=== PATIENT | male | born 1955 | race American Indian/Alaskan Native ===

== ENCOUNTER 2017-04-20 11:28 | Observation (INO) | payer BC ==
--- NOTE | 2017-04-20 12:27 | ED PDOC ---
Arrival/HPI - General Chief Complaint: Chest Pain Time Seen by Provider: 04/20/17 11:32 Historian: Patient - History of Present Illness Narrative History of Present Illness (Text): 04/20/17 12:39 61 year old male, whose past medical history includes cardiac stent ( noncompliant with medication for 6 months), [facility] for on and off chest pain for the past few days. Patient describes the chest pain as pressure sensation. He reports last episode early this morning. Patient positive for nonproductive cough, but denies any fever, chills, shortness of breath, nausea, vomiting, diarrhea, urinary symptoms, back pain, neck pain, headache, dizziness, or any other complaints. PMD: Dr. Rapp Time/Duration: Other (3-4 days) Symptom Onset: Gradual Symptom Course: Intermittent Quality: Pressure Activities at Onset: Light Context: Home Past Medical History - Provider Review Nursing Documentation Reviewed: Yes - Infectious Disease Hx of Infectious Diseases: None - Cardiac Hx Cardiac Disorders: No Other/Comment: cardiac stent - Pulmonary Hx Respiratory Disorders: No - Neurological Hx Neurological Disorder: No - HEENT Hx HEENT Disorder: No - Renal Hx Renal Disorder: No - Endocrine/Metabolic Hx Endocrine Disorders: No - Hematological/Oncological Hx Blood Transfusions: No Hx Blood Transfusion Reaction: No - Integumentary Hx Dermatological Disorder: No - Musculoskeletal/Rheumatological Hx Falls: No - Gastrointestinal Other/Comment: heart burn... takes prevacid prn - Genitourinary/Gynecological Hx Genitourinary Disorders: No - Psychiatric Hx Psychophysiologic Disorder: No Hx Substance Use: No - Past Surgical History Past Surgical History: No Previous - Anesthesia Hx Anesthesia Reactions: No Hx Malignant Hyperthermia: No - Suicidal Assessment Feels Threatened In Home Enviroment: No Family/Social History - Physician Review Nursing Documentation Reviewed: Yes Family/Social History: No Known Family HX Smoking Status: Former Smoker Hx Alcohol Use: No Hx Substance Use: No Allergies/Home Meds Allergies/Adverse Reactions: Allergies No Known Allergies Allergy (Verified 04/27/13 21:36) Home Medications: Home Meds Medication Instructions Recorded Confirmed No Known Home Med 04/20/17 04/20/17 Review of Systems - Physician Review All systems were reviewed & negative as marked: Yes - Review of Systems Constitutional: absent: Fevers, Other (Chills) Respiratory: Cough. absent: SOB Cardiovascular: Chest Pain Gastrointestinal: absent: Diarrhea, Nausea, Vomiting Genitourinary Male: absent: Dysuria, Frequency, Hematuria Musculoskeletal: absent: Back Pain, Neck Pain Neurological: absent: Headache, Dizziness Physical Exam Vital Signs Reviewed: Yes Vital Signs Temp Pulse Resp BP Pulse Ox 04/20/17 14:15 66 18 160/100 H 99 04/20/17 12:02 69 16 130/85 97 04/20/17 11:32 98.3 F 68 18 130/85 98 Temperature: Afebrile Blood Pressure: Normal Pulse: Regular Respiratory Rate: Normal Appearance: Positive for: Well-Appearing, Non-Toxic, Comfortable Pain Distress: None Mental Status: Positive for: Alert and Oriented X 3 - Systems Exam Head: Present: Atraumatic, Normocephalic Pupils: Present: PERRL Extroacular Muscles: Present: EOMI Conjunctiva: Present: Normal Mouth: Present: Moist Mucous Membranes Neck: Present: Normal Range of Motion Respiratory/Chest: Present: Clear to Auscultation, Good Air Exchange. No: Respiratory Distress, Accessory Muscle Use Cardiovascular: Present: Regular Rate and Rhythm, Normal S1, S2. No: Murmurs Abdomen: Present: Normal Bowel Sounds. No: Tenderness, Distention, Peritoneal Signs Back: Present: Normal Inspection Upper Extremity: Present: Normal Inspection. No: Cyanosis, Edema Lower Extremity: Present: Normal Inspection. No: Edema Neurological: Present: GCS=15, CN II-XII Intact, Speech Normal Skin: Present: Warm, Dry, Normal Color. No: Rashes Psychiatric: Present: Alert, Oriented x 3, Normal Insight, Normal Concentration Medical Decision Making ED Course and Treatment: 04/20/17 12:39 Impression: 61 year old male presents complaining of on and off chest pain for the past few days associated with a nonproductive cough. Plan: -- Labs -- EKG -- Reassess and disposition Prior Visits: Notes and results from previous visits were reviewed. Patient was last seen in the emergency department on 04/28/13 presents complaining of on and off worsening chest pain for the past 5 days. Progress Notes: 04/20/17 12:53 EKG shows NSR at 71 BPM with first degree AV Block. Left axis deviation. Interpreted by me. - Lab Interpretations Lab Results: Lab Results 01/04/18 13:30: Triglycerides 112, Cholesterol 176, LDL Cholesterol Direct 122, HDL Cholesterol 30 04/20/17 13:30: Lactate Dehydrogenase 469, Total Creatine Kinase 92, Troponin I < 0.01 D 04/20/17 12:20: ESR 15 04/20/17 12:16: D-Dimer, Quantitative < 200 I have reviewed the lab results: Yes - EKG Interpretation Interpreted by ED Physician: Yes Type: 12 lead EKG - Medication Orders Current Medication Orders: Albuterol/Ipratropium (Duoneb 3 Mg/0.5 Mg (3 Ml) Ud) 3 ml IH [id number] [facility] Stop: 05/20/17 08:01 Last Admin: 04/20/17 14:43 Dose: 3 ml Aspirin (Ecotrin) 81 mg PO DAILY [facility] Last Admin: 04/20/17 14:39 Dose: Atorvastatin Calcium (Lipitor) 40 mg PO DAILY [facility] Last Admin: 04/20/17 14:43 Dose: 40 mg Benzonatate (Tessalon Perles) 200 mg PO TID [facility] Last Admin: 04/20/17 14:43 Dose: 200 mg Clopidogrel Bisulfate (Plavix) 75 mg PO DAILY [facility] Last Admin: 04/20/17 14:43 Dose: 75 mg Enoxaparin Sodium (Lovenox) 50 mg SC Q12H [facility] PRN Reason: Protocol Last Admin: 04/20/17 14:43 Dose: 50 mg Subcutaneous Administrations Document 04/20/17 14:43 [facility] [place]Rec: 04/20/17 14:43 [facility] [id number][place] Injection Site MAR Injection Site Left Abdomen Charges for Administration # of Subcutaneous Administrations 1 Sodium Chloride (Sodium Chloride 0.9%) 1,000 mls @ 100 mls/hr IV .Q10H [facility] Last Admin: 04/20/17 14:43 Dose: 100 mls/hr eMAR Start Stop Document 04/20/17 14:43 [facility] [place]Rec: 04/20/17 14:44 [facility] [id number]) Intravenous Solution Start Date 04/20/17 Start Time 14:44 Metoprolol Tartrate (Lopressor) 25 mg PO BID [facility] Pantoprazole Sodium (Protonix Ec Tab) 40 mg PO 0600,1600 [facility] Last Admin: 04/20/17 16:16 Dose: 40 mg - Scribe Statement The provider has reviewed the documentation as recorded by the Scribe Alaa Amberly Provider Verna Attestation: All medical record entries made by the Verna were at my direction and personally dictated by me. I have reviewed the chart and agree that the record accurately reflects my personal performance of the history, physical exam, medical decision making, and the department course for this patient. I have also personally directed, reviewed, and agree with the discharge instructions and disposition. Disposition/Present on Arrival - Present on Arrival Any Indicators Present on Arrival: No History of DVT/PE: No History of Uncontrolled Diabetes: No Urinary Catheter: No History of Decub. Ulcer: No History Surgical Site Infection Following: None - Disposition Have Diagnosis and Disposition been Completed?: Yes Diagnosis: Chest pain Disposition: HOSPITALIZED Disposition Time: 13:40 Condition: STABLE
[2017-04-20 13:54] LABS: TROPONIN I < 0.01 ng/mL
[2017-04-20] MEDS ORDERED: Iohexol 240 (50 ml) ONE (14:21)
--- NOTE | 2017-04-20 14:35 | CARD ---
APPROVED REPORT EKG Measurement Heart [id number] <Conclusion> Sinus rhythm with 1st degree AV block Poor R Progression V1-V3.
[2017-04-20 14:40] LABS: HDL CHOLESTEROL 30 mg/dL (29-60)
[2017-04-20] MEDS: Sodium Chloride 0.9% 1,000 ML IV SCH (14:43)
[2017-04-20] MEDS: Albuterol-Ipratrop 3 mg / 0.5 (3 ml) UD IH SCH (14:43)
[2017-04-20] MEDS: Enoxaparin 60 mg Syringe SC SCH (14:43)
[2017-04-20 14:51] LABS: LDL CHOLESTEROL 122 mg/dL (0-129)
--- NOTE | 2017-04-20 15:46 | CP.PCM.HP ---
History of Present Illness - History of Present Illness History of Present Illness: Sofiya Vincent, PGY1, H&P for Dr Rapp: CC: chest pain 61 year old male, with PMH cardiac stent 2012, presents to the emergency department for intermittent left chest pain x past 3 days. Patient states that he has been having cold symptoms (nasal congestion and nonproductive cough) for past 3 days, along with this left sided pressure like cp, rates it 6/10, intermittent in nature, worsened last night, which prompted him to come to ED. Denies associated sob, diaphoresis, palpitations, n/v/abd pain. Furthermore, denies headache, diarrhea, urinary symptoms, back pain, neck pain, headache, dizziness, loss of appetite, constipation. In ED, pt hemodynamically stable, EKG showed NSR at 71. 1st degree AV block, d dimer neg, initial trop neg. 12 point ROS negative, except as noted per HPI. PMD: Dr. 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 Present on Admission - Present on Admission Any Indicators Present on Admission: No History of DVT/PE: No History of Uncontrolled Diabetes: No Urinary Catheter: No Decubitus Ulcer Present: No Review of Systems - Review of Systems All systems: reviewed and no additional remarkable complaints except Review of Systems: as per HPI Past Patient History - Infectious Disease Hx of Infectious Diseases: None - Past Social History Smoking Status: Former Smoker - CARDIAC Hx Cardiac Disorders: No Other/Comment: cardiac stent - PULMONARY Hx Respiratory Disorders: No - NEUROLOGICAL Hx Neurological Disorder: No - HEENT Hx HEENT Problems: No - RENAL Hx Chronic Kidney Disease: No - ENDOCRINE/METABOLIC Hx Endocrine Disorders: No - HEMATOLOGICAL/ONCOLOGICAL Hx Blood Transfusions: No Hx Blood Transfusion Reaction: No - INTEGUMENTARY Hx Dermatological Problems: No - MUSCULOSKELETAL/RHEUMATOLOGICAL Hx Falls: No - GASTROINTESTINAL Other/Comment: heart burn... takes prevacid prn - GENITOURINARY/GYNECOLOGICAL Hx Genitourinary Disorders: No - PSYCHIATRIC Hx Psychophysiologic Disorder: No Hx Substance Use: No - SURGICAL HISTORY Hx Surgeries: Yes - ANESTHESIA Hx Anesthesia Reactions: No Hx Malignant Hyperthermia: No Meds Allergies/Adverse Reactions: Allergies Allergy/AdvReac Type Severity Reaction Status Date / Time No Known Allergies Allergy Verified 04/27/13 21:36 Physical Exam - Constitutional Appears: Non-toxic, No Acute Distress - Head Exam Head Exam: ATRAUMATIC, NORMOCEPHALIC - Eye Exam Eye Exam: EOMI, PERRL. absent: Scleral icterus Pupil Exam: PERRL - ENT Exam ENT Exam: Mucous Membranes Moist Additional comments: mild erythematous pharynx - Neck Exam Neck exam: Positive for: Normal Inspection. Negative for: Lymphadenopathy - Respiratory Exam Respiratory Exam: Clear to Auscultation Bilateral. absent: Accessory Muscle Use , Respiratory Distress - Cardiovascular Exam Cardiovascular Exam: +S1, +S2. absent: Systolic Murmur - GI/Abdominal Exam GI & Abdominal Exam: Normal Bowel Sounds, Soft. absent: Diminished Bowel Sounds , Tenderness - Rectal Exam Rectal Exam: Deferred - Extremities Exam Extremities exam: Positive for: calf tenderness, normal inspection. Negative for: pedal edema - Back Exam Back exam: NORMAL INSPECTION - Neurological Exam Neurological exam: Alert, Oriented x3 - Psychiatric Exam Psychiatric exam: Normal Affect, Normal Mood - Skin Skin Exam: Dry, Normal Color, Warm Results - Vital Signs Recent Vital Signs: Last Vital Signs Temp 98.3 F 04/20/17 11:32 Pulse 66 04/20/17 14:15 Resp 18 04/20/17 14:15 BP 160/100 H 04/20/17 14:15 Pulse Ox 99 04/20/17 14:15 Assessment & Plan - Assessment and Plan (Free Text) Assessment: 61 years old male with hx of cardiac stent, presents for chest pain and cold like symptoms: Chest pain, r/o ACS: - EKG showed HR 71 SR with 1st degree AV block. left axis deviation. - Initial trop neg. f/u serial trops with EKG. - D dimer neg. - ASA 81, lipitor, BB - Cardio consulted. f/u recs - f/u ct chest/abd/pelvis and echocardiogram - Echo 2014 showed normal ef 54% and no valvular abnormalities. - Tele monitor Cold like symptoms: - f/u influenza and throat culture - f/u cbc, cmp - tessalon perles and duonebs PPX: Protonix, Lovenox Will discuss with Dr Rapp. Sofyia Vincent, PGY1 - Date & Time Date: 04/20/17 Time: 15:53
[2017-04-20] MEDS: Pantoprazole 40 mg EC Tab PO SCH (16:16)
[2017-04-20 16:29] LABS: BASO # 0.02 K/mm3 (0.0-2.0); BASO % 0.3 % (0.0-3.0); EOS # 0.1 (0.0-0.7); EOS % 1.5 % (1.5-5.0); GRAN # 3.6 (1.4-6.5); GRAN % 50.7 % (50.0-68.0); HEMOGLOBIN 14.6 g/dL (14.0-18.0); LYMPH # 2.9 (1.2-3.4); LYMPH % 40.6 % (22.0-35.0); MEAN CELL VOLUME 89.7 fl (80.0-105.0); MEAN CORPUSCULAR HEMOGLOBIN 30.6 pg (25.0-35.0); MEAN CORPUSCULAR HGB CONC 34.1 g/dl (31.0-37.0); MEAN PLATELET VOLUME 10.4 fl (7.0-11.0); MONO # 0.5 (0.1-0.6); MONO % 6.9 % (1.0-6.0); RBC 4.77 10^6/uL (3.5-6.1); RED CELL DISTRIBUTION WIDTH 13.2 % (11.5-14.5); WHITE BLOOD COUNT 7.1 10^3/ul (4.5-11.0)
--- NOTE | 2017-04-20 16:35 | RAD ---
HISTORY: cough COMPARISON: 02/2014 FINDINGS: LUNGS: No consolidation PLEURA: No significant pleural effusion identified, no pneumothorax apparent. CARDIOVASCULAR: Mild cardiomegaly. Tortuous unfolded thoracic aorta accentuate on this projection -slightly increased in conspicuity as well. Central pulmonary venous mild congestion ; minimal left perihilar bronchial cuffing OSSEOUS STRUCTURES: Thoracic spondylosis VISUALIZED UPPER ABDOMEN: Normal. OTHER FINDINGS: None. IMPRESSION: Cardiomegaly probable mild central pulmonary venous congestion increased since prior exam. No pleural effusions or pneumothorax. No consolidative infiltrate
[2017-04-20 16:42] LABS: ALB/GLOB RATIO 1.1 (1.1-1.8); ALBUMIN 3.8 g/dL (3.0-4.8); ALT/SGPT 30 U/L (7-56); AST/SGOT 26 U/L (17-59); BLOOD UREA NITROGEN 12 mg/dL (7-21); CALCIUM 8.7 mg/dL (8.4-10.5); GFR AFRICAN-AMERICAN > 60; GFR NON-AFRICAN AMERICAN > 60
[2017-04-20] MEDS ORDERED: Iohexol 350 MG/100 ML VIAL ONE (16:48)
--- NOTE | 2017-04-20 17:39 | CT ---
CT chest, abdomen, and pelvis with IV contrast Indication: Left chest pain/left upper quadrant pain Technique: Contiguous axial images of the chest, abdomen, and pelvis. Coronal and Sagittal reformats generated and reviewed. This CT exam was performed using 1 or more of the following dose reduction techniques: Automated exposure control, adjustment of the MAA and/or kV according to patient size, and/or use of iterative reconstruction technique. Oral contrast was administered. 100 mL Omnipaque 350 Radiation dose: Total exam DLP = 1025.33 MGy-cm. Comparison: Chest x-ray performed 04/20/17 Findings: Visualized portions of the inferior thyroid gland appear unremarkable. The mediastinal and hilar vascular structures appear within normal limits. The heart appears within normal limits of size. 13 mm upper mediastinal lymph node. Additional sub cm mediastinal lymph nodes. No focal consolidation. No pleural effusion. No pneumothorax. No suspicious pulmonary nodules measuring greater than 5 mm. The liver, spleen, kidneys, pancreas, adrenal glands, and gallbladder appear unremarkable. The stomach is nondistended. Scattered diverticulosis without CT evidence of acute diverticulitis. The bowel loops appear within normal limits of caliber without evidence of intestinal obstruction. There is no definite free air. The appendix appears within normal limits of caliber. No secondary signs of acute appendicitis. The prostate gland measures approximately 3.8 x 4.8 cm. The urinary bladder appears unremarkable. Bilateral gynecomastia. Bilateral fat containing inguinal hernias. Degenerative changes of the spine. Impression: Scattered diverticulosis without CT evidence of acute diverticulitis. Enlarged prostate gland. Recommend correlation with PSA. 13 mm upper mediastinal lymph node and additional sub cm mediastinal lymph nodes ; nonspecific. Additional incidental findings as above.
[2017-04-20 18:23] LABS: TROPONIN I < 0.01 ng/mL
[2017-04-20 19:53] VITALS: BMI 29.1
[2017-04-20] MEDS ORDERED: Pneumococcal 23-Valent Vaccine IM ONE (19:53)
[2017-04-20] MEDS ORDERED: Influenza Vaccine 60 mcg/0.5 mL SYR (4YR UP) IM ONE (19:53)
[2017-04-20 22:15] LABS: TROPONIN I < 0.01 ng/mL
--- NOTE | 2017-04-20 22:57 | HP ---
HISTORY OF PRESENT ILLNESS: The patient is a 61-year-old male, who has been lost to follow up since last 3 years. The patient was seen in the [facility] satellite ER on [address] in [place], presented with left-sided chest pain around the left rib cage, radiating to the left lower rib cage and anteriorly. The patient presented to the [facility] satellite ER for the above complaint of chest pain. The patient was given Tylenol, aspirin. The patient described the pain as a pressure-type, lasted since started since yesterday. Also complains of body aches and pain. Pain scale was described as 7-8/10. The patient was transferred. The patient was evaluated in the [facility] satellite ER. The patient had chest x-ray, EKG, lab work done at the [facility] ER. REVIEW OF SYSTEMS: Thirteen systems review was done, pertinent positive and negative dictated above. The patient does complain of some cough and upper respiratory symptoms. CODE STATUS: The patient's code status full code. LIVING WILL ADVANCE DIRECTIVE: None. HEIGHT: 5 feet 10. WEIGHT: 208 pounds. BODY MASS INDEX: 29. ALLERGIES: NONE. HOME MEDICATIONS: None. The patient states that he has stopped taking all the medications. SOCIAL HISTORY: Positive for former smoking. Denies alcohol. Denies drug use. FAMILY HISTORY: Positive for hypertension. 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 PAST MEDICAL HISTORY: The patient's past medical history is significant for hypertension, history of caz-TH-[id number] myocardial function, history of acute coronary syndrome, history of angina, history of coronary artery disease with 90% mid segment right coronary stenosis, history of 30% ostial stenosis of the left circumflex, history of PCI of the mid RCA stenosis with drug-eluting stent, history of hypertension, history of left ventricular hypertrophy, history of lymphocytosis resolved, history of dyslipidemia, history of hypokalemia, history of dyslipidemia, history of noncompliance, history of coronary artery disease, history of angioplasty and stent placement, history of poor compliance, history of lost to follow up. As mentioned, the patient was seen in the [facility] satellite ER. The patient was evaluated and then the patient requested to be transferred to [place] emergency room for further treatment and admission and the patient requested to be transferred here to Dr. Marlon Rapp's service. PHYSICAL EXAMINATION: GENERAL: The patient was seen in bed #2 in the emergency room. VITAL SIGNS: T-max 98.3, heart rate 68-69, blood pressure 130/85, respirations 18, O2 sat 97-98%. HEENT: The patient's head examination normocephalic, atraumatic. HEENT examination shows pink conjunctivae. Anicteric sclerae. No oropharyngeal lesion. No neck rigidity. No jugular venous distention. No carotid bruit. CHEST: Kyphosis. LUNGS: Shows no rales, crackles or wheezing. Occasional rhonchi noted, left more than the right. CARDIOVASCULAR: S1, S2, regular rhythm. No audible murmur, gallop or rub. ABDOMEN: Soft. Positive bowel sounds. Questionable left rib cage palpable tenderness. Positive questionable left upper quadrant deep tenderness. No rebound tenderness. No appreciable hepatosplenomegaly. GENITALIA: Male. RECTAL: Deferred. EXTREMITY: Shows no pitting edema, no calf tenderness, no Maria Isabel's signs. VASCULAR: Palpable pulses. No clubbing, no cyanosis. No pitting edema, no calf tenderness, no Maria Isabel's signs. NEUROLOGIC: The patient is alert, awake, oriented x3. Cranial nerves II through XII intact. Gait examination is not tested. LABORATORY DATA: The patient's diagnostics including the lab data, chest x-ray and EKG were reviewed from the [facility] satellite ER. All were within normal limit. The patient had a second set of cardiac enzymes done in the emergency room, which was CPK and troponin, which was negative. D-dimer was negative. The patient was seen and evaluated in the emergency room. The patient had an EKG done in the emergency room also, repeated. The patient was seen and evaluated in the emergency room by Dr. Sin. The agreed to stay in the hospital for observation. The patient's EKG was reviewed, which shows sinus rhythm with left axis deviation and left ventricular hypertrophy changes. The patient was seen and evaluated. The patient was advised to be admitted to telemetry observation. IMPRESSION AND PLAN: 1. Chest pain. 2. Questionable and possible acute coronary syndrome. 3. Unstable angina. 4. Hypertension. 5. History of poor compliance. 6. Questionable bronchitis. 7. History of coronary artery disease, history of gic-FG-acvlbywbi myocardial infarction, history of angioplasty and stent placement of the right coronary artery, history of dyslipidemia. Plan at this time, the patient is to be placed on telemetry observation. The patient has been ordered serial EKGs, serial troponins, serial CPK. Lipid panel ordered. ESR ordered. Cardiology consultation ordered. The patient is also ordered DuoNeb nebulizer every 6 hours. The patient is on aspirin 81 daily, Lipitor 40 mg daily, Lopressor 25 mg twice a day, Lovenox 50 mg subcu q. 12, Plavix 75 mg daily, Protonix 40 mg daily. The patient is also started on intravenous fluid hydration at 0.9 normal saline at 100 mL an hour, Tessalon Perles 200 three times a day. The patient is also ordered a CT of the chest, abdomen and pelvis for evaluation of the left-sided chest pain and left upper quadrant pain. Repeat EKG ordered. Echo with Doppler ordered. Heart healthy diet ordered. Lovenox out of bed ordered. The patient is ordered deep venous thrombosis, gastrointestinal prophylaxis. The patient was explained about the details of his medical condition. The patient is agreeable to be hospitalized for further cardiac testing and further diagnostic therapeutic intervention. The patient was explained all the details of his medical condition, need for hospitalization, need for further treatment management was discussed and explained to the patient at length and all questions concerned answered. Dictated and electronically signed, not read. Signing off, Marlon Rapp MD
[2017-04-21] MEDS: Enoxaparin 60 mg Syringe SC SCH (03:17)
[2017-04-21] MEDS: Sodium Chloride 0.9% 1,000 ML IV SCH ×3 (03:20→10:38)
[2017-04-21 03:40] VITALS: RESP 18
[2017-04-21] MEDS: Pantoprazole 40 mg EC Tab PO SCH (06:13)
[2017-04-21 07:02] VITALS: TEMP 98.7; O2SAT 100
[2017-04-21 07:03] LABS: BASO # 0.02 K/mm3 (0.0-2.0); BASO % 0.3 % (0.0-3.0); EOS # 0.1 (0.0-0.7); EOS % 2.4 % (1.5-5.0); GRAN # 2.81 (1.4-6.5); GRAN % 47.2 % (50.0-68.0); HEMOGLOBIN 14.2 g/dL (14.0-18.0); LYMPH # 2.6 (1.2-3.4); LYMPH % 43.7 % (22.0-35.0); MEAN CORPUSCULAR HGB CONC 33.6 g/dl (31.0-37.0); MONO # 0.4 (0.1-0.6); MONO % 6.4 % (1.0-6.0); RBC 4.74 10^6/uL (3.5-6.1); RED CELL DISTRIBUTION WIDTH 12.9 % (11.5-14.5)
[2017-04-21 07:43] LABS: ALB/GLOB RATIO 1.1 (1.1-1.8); ALBUMIN 3.6 g/dL (3.0-4.8); ALT/SGPT 27 U/L (7-56); AST/SGOT 25 U/L (17-59); BLOOD UREA NITROGEN 10 mg/dL (7-21); CALCIUM 8.5 mg/dL (8.4-10.5); GFR AFRICAN-AMERICAN > 60; GFR NON-AFRICAN AMERICAN > 60
--- NOTE | 2017-04-21 08:05 | CP.PCM.PN ---
Subjective - Date & Time of Evaluation Date of Evaluation: 04/21/17 Time of Evaluation: 08:04 - Subjective Subjective: Sofiya Vincent, PGY1, Medicine Progress Note for Dr Rapp: Patient seen and examined at bedside. No acute events overnight. Patient denies Objective - Vital Signs/Intake and Output Vital Signs (last 24 hours): Temp Pulse Resp BP Pulse Ox 98.7 F 63 18 136/87 100 04/21/17 06:00 04/21/17 06:00 04/21/17 06:00 04/21/17 06:00 04/21/17 06:00 Intake and Output: 04/21/17 04/21/17 06:59 18:59 Intake Total 240 1000 Output Total 300 Balance -60 1000 - Medications Medications: Current Medications Acetaminophen (Tylenol 325mg Tab) 650 mg PO Q6H PRN PRN Reason: headache Last Admin: 04/20/17 22:48 Dose: 650 mg Albuterol/Ipratropium (Duoneb 3 Mg/0.5 Mg (3 Ml) Ud) 3 ml IH [id number] [facility] Stop: 05/20/17 08:01 Last Admin: 04/20/17 14:43 Dose: 3 ml Aspirin (Ecotrin) 81 mg PO DAILY [facility] Last Admin: 04/20/17 14:39 Dose: Not Given Atorvastatin Calcium (Lipitor) 40 mg PO DAILY [facility] Last Admin: 04/20/17 14:43 Dose: 40 mg Benzonatate (Tessalon Perles) 200 mg PO TID [facility] Last Admin: 04/20/17 14:43 Dose: 200 mg Clopidogrel Bisulfate (Plavix) 75 mg PO DAILY [facility] Last Admin: 04/20/17 14:43 Dose: 75 mg Enoxaparin Sodium (Lovenox) 50 mg SC Q12H [facility] PRN Reason: Protocol Last Admin: 04/21/17 03:17 Dose: 50 mg Sodium Chloride (Sodium Chloride 0.9%) 1,000 mls @ 100 mls/hr IV .Q10H [facility] Last Admin: 04/21/17 06:13 Dose: 100 mls/hr Metoprolol Tartrate (Lopressor) 25 mg PO BID [facility] Last Admin: 04/20/17 17:43 Dose: 25 mg Pantoprazole Sodium (Protonix Ec Tab) 40 mg PO 0600,1600 [facility] Last Admin: 04/21/17 06:13 Dose: 40 mg - Labs Labs: 04/21/17 06:00 04/21/17 06:00
[2017-04-21] MEDS: Albuterol-Ipratrop 3 mg / 0.5 (3 ml) UD IH SCH (08:24)
--- NOTE | 2017-04-21 09:58 | CARD ---
APPROVED REPORT EKG Measurement Heart [id number] <Conclusion> Sinus rhythm with premature supraventricular complexes Otherwise normal ECG
--- NOTE | 2017-04-21 10:37 | CP.PCM.DIS ---
Provider - Provider Date of Admission: 04/20/17 14:10 Attending physician: Marlon Rapp MD Primary care physician: Marlon Rapp MD Consults: Card[place] Time Spent in preparation of Discharge (in minutes): 35 Diagnosis - Discharge Diagnosis (1) Chest pain Status: Acute (2) Reflux Status: Acute Hospital Course - Lab Results Lab Results: Most Recent Lab Values WBC 6.0 10^3/ul (4.5-11.0) 04/21/17 06:00 RBC 4.74 10^6/uL (3.5-6.1) 04/21/17 06:00 Hgb 14.2 g/dL (14.0-18.0) 04/21/17 06:00 Hct 42.2 % (42.0-52.0) 04/21/17 06:00 MCV 89.0 fl (80.0-105.0) 04/21/17 06:00 MCH 30.0 pg (25.0-35.0) 04/21/17 06:00 MCHC 33.6 g/dl (31.0-37.0) 04/21/17 06:00 RDW 12.9 % (11.5-14.5) 04/21/17 06:00 Plt Count 208 10^3/uL (120.0-450.0) 04/21/17 06:00 MPV 10.0 fl (7.0-11.0) 04/21/17 06:00 Gran % 47.2 % (50.0-68.0) L 04/21/17 06:00 Lymph % (Auto) 43.7 % (22.0-35.0) H 04/21/17 06:00 [place] % (Auto) 6.4 % (1.0-6.0) H 04/21/17 06:00 Eos % (Auto) 2.4 % (1.5-5.0) 04/21/17 06:00 Baso % (Auto) 0.3 % (0.0-3.0) 04/21/17 06:00 Gran # 2.81 (1.4-6.5) 04/21/17 06:00 Lymph # 2.6 (1.2-3.4) 04/21/17 06:00 [place] # 0.4 (0.1-0.6) 04/21/17 06:00 Eos # 0.1 (0.0-0.7) 04/21/17 06:00 Baso # 0.02 K/mm3 (0.0-2.0) 04/21/17 06:00 ESR 15 mm/hr (0.00-15.0) 04/20/17 12:20 D-Dimer, Quantitative < 200 ng/mL (0-243) 04/20/17 12:16 Sodium 139 mmol/L (132-148) 04/21/17 06:00 Potassium 3.8 mmol/L (3.6-5.0) 04/21/17 06:00 Chloride 108 mmol/L (98-107) H 04/21/17 06:00 Carbon Dioxide 23 mmol/L (21-33) 04/21/17 06:00 Anion Gap 12 (10-20) 04/21/17 06:00 BUN 10 mg/dL (7-21) 04/21/17 06:00 Creatinine 0.7 mg/dl (0.8-1.5) L 04/21/17 06:00 Est GFR ( Amer) > 60 04/21/17 06:00 Est GFR (Non-Af Amer) > 60 04/21/17 06:00 Random Glucose 98 mg/dL (70-110) 04/21/17 06:00 Calcium 8.5 mg/dL (8.4-10.5) 04/21/17 06:00 Total Bilirubin 1.7 mg/dL (0.2-1.3) H 04/21/17 06:00 AST 25 U/L (17-59) 04/21/17 06:00 ALT 27 U/L (7-56) 04/21/17 06:00 Alkaline Phosphatase 63 U/L (38-126) 04/21/17 06:00 Lactate Dehydrogenase 469 U/L (333-699) 04/20/17 13:30 Total Creatine Kinase 90 U/L (35-230) 04/20/17 21:49 Troponin I < 0.01 ng/mL 04/20/17 21:49 Total Protein 6.8 g/dL (5.8-8.3) 04/21/17 06:00 Albumin 3.6 g/dL (3.0-4.8) 04/21/17 06:00 Globulin 3.2 gm/dL 04/21/17 06:00 Albumin/Globulin Ratio 1.1 (1.1-1.8) 04/21/17 06:00 Triglycerides 112 mg/dL (35-160) 04/20/17 13:30 Cholesterol 176 mg/dL (130-200) 04/20/17 13:30 LDL Cholesterol Direct 122 mg/dL (0-129) 04/20/17 13:30 HDL Cholesterol 30 mg/dL (29-60) 04/20/17 13:30 Prostate Specific Ag 2.6 ng/mL (0.00-2.5) H 04/21/17 08:00 Influenza Typ A,B (EIA) Negative for flu a/b (NEGATIVE) 04/20/17 16:00 - Hospital Course Hospital Course: 61 year old male, with PMH cardiac stent 2012, presents to the emergency department for intermittent left chest pain x past 3 days. Patient states that he has been having cold symptoms (nasal congestion and nonproductive cough) for past 3 days, along with this left sided pressure like cp, rates it 6/10, intermittent in nature, worsened last night, which prompted him to come to ED. Denies associated sob, diaphoresis, palpitations, n/v/abd pain. Furthermore, denies headache, diarrhea, urinary symptoms, back pain, neck pain, headache, dizziness, loss of appetite, constipation. Pt hemodynamically stable, EKG showed NSR at 71. 1st degree AV block, d dimer neg, trops neg x3. CXR showed mild cardiomegaly. no infiltrates. CT chest/ abdomen/pelvis shows diverticulosis and enlarged prostate. Will dsicharge patient once Cardiology clears patient. Patient advised to be compliant with his home medications. Discharge Exam - Additional Findings Additional findings: - Constitutional Appears: Non-toxic, No Acute Distress - Head Exam Head Exam: ATRAUMATIC, NORMOCEPHALIC - Eye Exam Eye Exam: EOMI, PERRL. absent: Scleral icterus Pupil Exam: PERRL - ENT Exam ENT Exam: Mucous Membranes Moist Additional comments: mild erythematous pharynx - Neck Exam Neck exam: Positive for: Normal Inspection. Negative for: Lymphadenopathy - Respiratory Exam Respiratory Exam: Clear to Auscultation Bilateral. absent: Accessory Muscle Use , Respiratory Distress - Cardiovascular Exam Cardiovascular Exam: +S1, +S2. absent: Systolic Murmur - GI/Abdominal Exam GI & Abdominal Exam: Normal Bowel Sounds, Soft. absent: Diminished Bowel Sounds , Tenderness - Rectal Exam Rectal Exam: Deferred - Extremities Exam Extremities exam: Positive for: calf tenderness, normal inspection. Negative for: pedal edema - Back Exam Back exam: NORMAL INSPECTION - Neurological Exam Neurological exam: Alert, Oriented x3 - Psychiatric Exam Psychiatric exam: Normal Affect, Normal Mood - Skin Skin Exam: Dry, Normal Color, Warm Discharge Plan - Discharge Medications Prescriptions: Aspirin [Ecotrin] 81 mg PO DAILY #30 tabec Atorvastatin [Lipitor] 40 mg PO DAILY #30 tab Azithromycin [Zithromax] 250 mg PO DAILY #7 tab Benzonatate [Tessalon Perles] 200 mg PO TID #30 sgl Clopidogrel [Plavix] 75 mg PO DAILY #30 tab Pantoprazole [Protonix EC Tab] 40 mg PO 0600,1600 #30 ect - Follow Up Plan Condition: STABLE Disposition: HOME/ ROUTINE Patient education suggested?: Yes Instructions: Cardiac Stress Test (DC), Chest Pain (DC) Additional Instructions: STRESS TEST IS SCHEDULED ON Monday04/24/17 AT 6:45 A.M. AT [facility]. FOLLOW UP WITH WITHIN 1 WEEK. FOLLOW UP WITHIN 1 WEEK. TAKE MEDICATIONS PRESCRIBED. Referrals: Marlon Rapp MD [Primary Care Provider] - 1 Week (DISCHARGE HOME AFTER CLEARED BY AND AFTER ECHO IS DONE FOLLOW UP FOR FURTHER CARE FOLLOW UP WITHIN 1 WEEK DISCHARGE MEDS PER UPDATED AMBULATORY ORDERS AND NEW SCRIPTS) Bradley Lake MD [Staff Provider] - 1 Week (DISCHARGE HOME AFTER CLEARED BY AND AFTER ECHO IS DONE FOLLOW UP FOR FURTHER CARE FOLLOW UP WITHIN 1 WEEK DISCHARGE MEDS PER UPDATED AMBULATORY ORDERS AND NEW SCRIPTS)
[2017-04-21 10:40] VITALS: BP 117/90
[2017-04-21 11:13] VITALS: PULSE 76
--- NOTE | 2017-04-21 21:05 | CON ---
DATE: 04/21/2017 HISTORY OF PRESENT ILLNESS: The patient is a 61-year-old male who presents with atypical chest pain. His symptoms are pleuritic in nature, increased with movement of his upper chest. No shortness of breath noted. PAST MEDICAL HISTORY: Includes a history of PTCA and stent in 2012. He suffers from hypercholesterolemia and has been on aspirin and Plavix since then. His cardiac risk factor include hypertension. He does complaining of occasional dizziness. No diabetes mellitus. SOCIAL HISTORY: Negative smoker. 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 REVIEW OF SYSTEMS: A 14 point review of systems was reviewed in detail. There are no cardiac symptoms while ambulating on the floor. PHYSICAL EXAMINATION VITAL SIGNS: Blood pressure 117/90, heart rate in the 70s. NECK: Negative JVD. LUNGS: Without rales. HEART: S1, S2. EXTREMITIES: Without edema. LABORATORY DATA: Includes an EKG that shows normal sinus rhythm with Wenckebach noted. Troponins are negative x2. BUN and creatinine are unremarkable. His hemoglobin is 14.2. IMPRESSION: 1. Atypical chest pain. 2. No evidence for acute coronary syndrome. 3. History of percutaneous transluminal coronary angioplasty and stent in 2012. 4. Hypercholesterolemia. 5. Wenckebach AV block. 6. History of hypertension. Given these findings, from a cardiac perspective, the patient can be discharged. I will DC his beta blockers given these AV block. I have discussed this with the patient. We will arrange for an outpatient stress test and echocardiogram which will be performed on Monday morning. Bradley Lake MD
--- NOTE | 2017-04-22 05:58 | DS ---
LOCATION: Patient is seen in room 372, bed 2. HISTORY OF PRESENT ILLNESS: Patient is seen lying in the bed. Patient states that his left-sided chest pain is completely resolved. The patient slept overnight, only complaint of slight headache. Patient's overnight nurse's notes were reviewed. PHYSICAL EXAMINATION: VITAL SIGNS: T-max is 98.7. Telemetry shows sinus rhythm, heart rate 62, 63, 67. Blood pressure 135/88, 136/80. Respiration 18, O2 sat 100%. HEENT: Head examination normocephalic, atraumatic. HEENT examination shows pinkish conjunctivae, dry oral mucosa. NECK: No neck rigidity. CHEST: Kyphosis. LUNGS: Shows occasional rhonchi upper lung james, left more than the right. CARDIOVASCULAR: S1, S2, regular rhythm. ABDOMEN: Soft. Positive bowel sound. No hepatosplenomegaly noted. No costovertebral angle tenderness. GENITALIA: Male. RECTAL: Examination is deferred. EXTREMITIES: Shows no pitting edema, no calf numbness, no Maria Isabel's signs. MUSCULOSKELETAL: Shows a body mass index of 29.2. Motor strength is 5/5 in upper and lower extremity. Gait examination is not tested. VASCULAR: Palpable pulses. PSYCHIATRIC: Negative. DIAGNOSTICS: On April 21, WBC 6.0, hemoglobin and hematocrit 14.2 and 42.2, platelet 208. D-dimer was less than 200. Sodium 139, potassium 3.8, chloride 108, CO2 23, anion gap 12, BUN 10, creatinine 0.7. GFR greater than 60, glucose 98. Calcium 8.5, total bili 1.7. LFTs are normal. Troponin all three sets are negative. Cholesterol 176, LDL 122. PSA is 2.6, which is slightly elevated. Influenza A and B negative. Chest x-ray shows mild cardiomegaly. Questionable pulmonary vascular congestion versus left perihilar bronchial cuffing noted. Thoracic spondylosis. EKG shows sinus rhythm, poor R-wave progression. FINAL IMPRESSION, PLAN AND DISCHARGE DIAGNOSIS 1. Chest pain, etiology undetermined. 2. History of coronary artery disease, history of non-ST elevation myocardial infarction and angioplasty and stent placement. 3. Poor compliance. 4. Hypertension. 5. Questionable bronchitis. 6. Lymphocytosis, etiology undetermined. 7. Hypercholesteremia with elevated low-density lipoprotein. 8. Slightly elevated prostate-specific antigen of 2.6. 9. Mild cardiomegaly. 10. Central pulmonary venous mild congestion and left perihilar bronchial cuffing. 11. Thoracic spondylosis. 12. A 13-mm mediastinal lymphadenopathy. 13. Diverticulosis of the colon. 14. Prostatomegaly. 15. Bilateral gynecomastia and bilateral fat containing inguinal hernia. 16. Degenerative joint disease of the spine. 17. Prostatomegaly. 18. Mediastinal lymphadenopathy. 19. Questionable left axis deviation. 20. Bronchitis 21. 2nd degree AV Wenckeback AV block PLAN: Plan at this time, the patient will be cleared for discharge home after cleared by Dr. Lake and after echo is done. Follow up with Dr. Lake for a stress test. Patient is advised follow up with Dr. Rapp within 1 week. Discharge medications as per new scripts and updated ambulatory ordered. DISCHARGE MEDICATIONS: As follows: 1. Aspirin 81 mg p.o. daily. 2. Lipitor 40 mg daily. 3. Zithromax Z-ALINE. 4. The patient is on Tessalon Perles 200 three times a day 5. Plavix 75 mg daily. 7. Protonix 40 mg daily. During this hospitalization, the patient was extensively explained about his diagnosis and test results. The patient was advised strict compliance with diet, medications and physician followup, which all of the above which the patient acknowledged and understood. All questions concerned answered. Time spent in the entire discharge process, more than 45 minutes. Dictated and electronically signed, not read. Marlon Rapp MD [email or web address]
== END 2017-04-21 13:15 | disposition home or self-care (01) ==
LOC: ED 11:28 → ERH 14:10 → 3RSO 22:05
PROVIDERS: ADMIT Internal Medicine; ATTEND Internal Medicine
DX: R07.89 Other chest pain (principal); I25.10 Atherosclerotic heart disease of native coronary artery without angina pectoris; E78.5 Hyperlipidemia, unspecified; I25.2 Old myocardial infarction; K21.9 Gastro-esophageal reflux disease without esophagitis; I11.9 Hypertensive heart disease without heart failure; E78.00 Pure hypercholesterolemia, unspecified; I44.1 Atrioventricular block, second degree; M47.814 Spondylosis without myelopathy or radiculopathy, thoracic region; K57.30 Diverticulosis of large intestine without perforation or abscess without bleeding; Z91.14 Patient's other noncompliance with medication regimen; Z95.5 Presence of coronary angioplasty implant and graft; Z87.891 Personal history of nicotine dependence; Z91.19 Patient's noncompliance with other medical treatment and regimen
CPT/HCPCS: 36415; 71045; 71260; 74177; 80053; 80061; 82550; 83615; 84153; 84484; 85025; 85378; 85651; 87070; 87804; 93005; 94640; 94760; 96372; 99285; G0378; J1650; J7040; Q9966; Q9967

== ENCOUNTER 2017-05-03 06:27 | Day surgery (SDC) | payer BC ==
[2017-05-01 15:24] VITALS: BMI 27.8
[2017-05-03] MEDS ORDERED: Lidocaine 2% Inj (20ml) ONE (06:50)
[2017-05-03] MEDS ORDERED: Phenylephrine 10 mg/ml Inj ONE (06:51)
[2017-05-03] MEDS ORDERED: Midazolam 2 MG/2 ML VIAL ONE ×2 (06:51→08:18)
[2017-05-03] MEDS ORDERED: Nitroglycerin 50mg in D5W 50 MG/250 ML BOTTLE IV ONE (06:52)
[2017-05-03] MEDS ORDERED: Iodixanol 320 MG/ML 100 ML BOTTLE IV ONE (06:52)
[2017-05-03] MEDS ORDERED: HEPARIN SODIUM/NS 2,000 ML IV ONE (06:52)
[2017-05-03] MEDS ORDERED: Iodixanol 320 MG/ML 200 ML BOTTLE IV ONE (06:52)
[2017-05-03] MEDS ORDERED: Iohexol 350mgl/ml 50 ML ONE (06:52)
[2017-05-03 07:17] LABS: BASO # 0.04 K/mm3 (0.0-2.0); BASO % 0.8 % (0.0-3.0); EOS # 0.2 (0.0-0.7); EOS % 3.2 % (1.5-5.0); GRAN # 2.55 (1.4-6.5); GRAN % 48.4 % (50.0-68.0); HEMOGLOBIN 14.3 g/dL (14.0-18.0); LYMPH # 2.1 (1.2-3.4); LYMPH % 40.6 % (22.0-35.0); MEAN CELL VOLUME 89.5 fl (80.0-105.0); MEAN CORPUSCULAR HEMOGLOBIN 30.2 pg (25.0-35.0); MEAN CORPUSCULAR HGB CONC 33.7 g/dl (31.0-37.0); MEAN PLATELET VOLUME 10.2 fl (7.0-11.0); MONO # 0.4 (0.1-0.6); RBC 4.74 10^6/uL (3.5-6.1); RED CELL DISTRIBUTION WIDTH 12.9 % (11.5-14.5); WHITE BLOOD COUNT 5.3 10^3/ul (4.5-11.0)
[2017-05-03 07:26] LABS: PROTHROMBIN TIME 12.4 SECONDS (9.4-12.5)
[2017-05-03 07:27] LABS: INR 1.08 (0.93-1.08); PARTIAL THROMBOPLASTIN TIME 35.2 Seconds (25.1-36.5)
[2017-05-03 07:37] LABS: BLOOD UREA NITROGEN 12 mg/dL (7-21); GFR AFRICAN-AMERICAN > 60; GFR NON-AFRICAN AMERICAN > 60
[2017-05-03] MEDS ORDERED: Morphine 2 mg/ml ISec ONE ×2 (08:52→09:00)
[2017-05-03] MEDS ORDERED: Sodium Chloride 0.9% 1,000 ML IV SCH (09:30)
--- NOTE | 2017-05-03 10:02 | CARD ---
APPROVED REPORT EKG Measurement Heart [id number] <Conclusion> Normal sinus rhythm Minimal voltage criteria for LVH, may be normal variant Cannot rule out Anterior infarct, age undetermined Abnormal ECG
--- NOTE | 2017-05-03 11:53 | CARD ---
APPROVED REPORT EKG Measurement Heart [id number] <Conclusion> Sinus bradycardia with 1st degree AV block Left axis deviation Moderate voltage criteria for LVH, may be normal variant ST elevation, consider early repolarization, pericarditis, or injury
--- NOTE | 2017-05-03 13:46 | CP.PCM.HP ---
History of Present Illness - History of Present Illness History of Present Illness: Mr. Jenkins is a 61 year old AAM with a past medical history significant for CAD s/ p one JASON in 2012 and HTN who presents for postoperative observation after undergoing cardiac cath with Dr. Lake. Patient was admitted to [facility] on 04/24/17 for atypical chest pain and was discharged with instructions to follow up with Dr. Lake for an outpatient stress test. Patient was found to have an abnormal stress test with an abnormal reversible inferior defect suspicious for ischemia. Patient was then taken to laborer saw[employer], where three JASON were placed in the mRCA. Patient is asymptomatic and with no complaints at this time. Patient denies fever, chills, headache, changes in his vision, chest pain, palpitations , SOB, cough, wheezing, abdominal pain, N/V/D/C, burning/pain with urination, skin changes or any numbness/tingling/weakness of any extremity. 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[employer] [employer] Allergies: NKDA Home Medications: As per MAR Present on Admission - Present on Admission Any Indicators Present on Admission: No Review of Systems - Review of Systems Review of Systems: As stated in HPI, otherwise negative Past Patient History - Infectious Disease Hx of Infectious Diseases: None - Past Social History Smoking Status: Never Smoked - CARDIAC Hx Pacemaker: No - PULMONARY Hx Respiratory Disorders: No - NEUROLOGICAL Hx Neurological Disorder: No - HEENT Hx HEENT Problems: Yes (sclera redness) - RENAL Hx Chronic Kidney Disease: No - ENDOCRINE/METABOLIC Hx Endocrine Disorders: No - HEMATOLOGICAL/ONCOLOGICAL Hx Blood Transfusions: No Hx Blood Transfusion Reaction: No - INTEGUMENTARY Hx Dermatological Problems: No - MUSCULOSKELETAL/RHEUMATOLOGICAL Hx Musculoskeletal Disorders: No - GASTROINTESTINAL Hx Gastroesophageal Reflux: Yes Other/Comment: heart burn... takes prevacid prn - GENITOURINARY/GYNECOLOGICAL Hx Genitourinary Disorders: No - PSYCHIATRIC Hx Emotional Abuse: No Hx Physical Abuse: No Hx Substance Use: No - SURGICAL HISTORY Hx Surgeries: No - ANESTHESIA Hx Anesthesia Reactions: No Hx Malignant Hyperthermia: No Meds Allergies/Adverse Reactions: Allergies Allergy/AdvReac Type Severity Reaction Status Date / Time No Known Allergies Allergy Verified 04/27/13 21:36 Physical Exam - Constitutional Appears: Non-toxic, No Acute Distress - Head Exam Head Exam: ATRAUMATIC, NORMAL INSPECTION, NORMOCEPHALIC - Eye Exam Eye Exam: EOMI, Normal appearance, PERRL. absent: Conjunctival injection, Nystagmus, Periorbital swelling, Periorbital tenderness, Scleral icterus Pupil Exam: NORMAL ACCOMODATION, PERRL - ENT Exam ENT Exam: Mucous Membranes Moist, Normal Exam - Neck Exam Neck exam: Positive for: Full Rom, Normal Inspection. Negative for: Meningismus - Respiratory Exam Respiratory Exam: Clear to Auscultation Bilateral, NORMAL BREATHING PATTERN. absent: Accessory Muscle Use, Chest Wall Tenderness, Decreased Breath Sounds, Prolonged Expiratory Phase, Rales, Rhonchi, Wheezes, Respiratory Distress, Stridor - Cardiovascular Exam Cardiovascular Exam: REGULAR RHYTHM, RRR, +S1, +S2. absent: Bradycardia, Tachycardia, Clicks, Diastolic murmur, Gallop, Irregular Rhythm, JVD, Rubs, +S4 , Systolic Murmur - GI/Abdominal Exam GI & Abdominal Exam: Normal Bowel Sounds, Soft. absent: Bruit, Diminished Bowel Sounds, Distended, Firm, Guarding, Hernia, Hyperactive Bowel Sounds, Hypoactive Bowel Sounds, Mass, Organomegaly, Pulsatile Mass, Rebound, Rigid, Tenderness - Extremities Exam Extremities exam: Positive for: full ROM, normal capillary refill, normal inspection, pedal pulses present. Negative for: calf tenderness, joint swelling , pedal edema, tenderness Additional comments: Insertion site used in cath procedure without erythema, discharge, fluctuance, or hematoma - Back Exam Back exam: FULL ROM, NORMAL INSPECTION. absent: CVA tenderness (L), CVA tenderness (R), muscle spasm, paraspinal tenderness, rash noted, tenderness, vertebral tenderness - Neurological Exam Neurological exam: Alert, CN II-XII Intact, Normal Gait, Oriented x3, Reflexes Normal - Psychiatric Exam Psychiatric exam: Normal Affect, Normal Mood - Skin Skin Exam: Dry, Intact, Normal Color, Warm Results - Vital Signs Recent Vital Signs: Last Vital Signs Temp 97.5 F L 05/03/17 09:30 Pulse 65 05/03/17 11:54 Resp 16 05/03/17 10:30 BP 131/90 05/03/17 11:54 Pulse Ox 97 05/03/17 09:30 - Labs Result Diagrams: 05/03/17 06:30 05/03/17 06:30 Labs: Laboratory Results - last 24 hr 05/03/17 05/03/17 05/03/17 06:30 06:30 06:30 WBC 5.3 RBC 4.74 Hgb 14.3 Hct 42.4 MCV 89.5 MCH 30.2 MCHC 33.7 RDW 12.9 Plt Count 270 MPV 10.2 Gran % 48.4 L Lymph % (Auto) 40.6 H [place] % (Auto) 7.0 H Eos % (Auto) 3.2 Baso % (Auto) 0.8 Gran # 2.55 Lymph # 2.1 [place] # 0.4 Eos # 0.2 Baso # 0.04 PT 12.4 INR 1.08 APTT 35.2 Sodium 143 Potassium 3.7 Chloride 105 Carbon Dioxide 27 Anion Gap 14 BUN 12 Creatinine 1.0 Est GFR ( Amer) > 60 Est GFR (Non-Af Amer) > 60 Random Glucose 116 H Calcium 9.0 Blood Type Antibody Screen BBK History Checked 05/03/17 06:30 WBC RBC Hgb Hct MCV MCH MCHC RDW Plt Count MPV Gran % Lymph % (Auto) [place] % (Auto) Eos % (Auto) Baso % (Auto) Gran # Lymph # [place] # Eos # Baso # PT INR APTT Sodium Potassium Chloride Carbon Dioxide Anion Gap BUN Creatinine Est GFR ( Amer) Est GFR (Non-Af Amer) Random Glucose Calcium Blood Type A POSITIVE Antibody Screen Negative BBK History Checked No verified bt Assessment & Plan - Assessment and Plan (Free Text) Assessment: 61 year old AAM with a past medical history significant for CAD s/p one JASON in 2012 and HTN who presents for postoperative observation after undergoing cardiac cath with Dr. Lake, where three JASON were placed in the mRCA. Plan: 1. CAD s/p three JASON placed in RCA -Continue home ASA, Lipitor, and Plavix -Daily EKG -Heart Healthy Diet -Cardiology consulted, all recommendations appreciated 2. History of HTN -Continue home Diovan -Hydralazine PRN for SBP >160mmHg GI Prophylaxis: Protonix DVT Prophylaxis: SCD's Patient seen and case discussed with attending, Dr. Rapp. - Date & Time Date: 05/03/17 Time: 13:36 Decision To Admit - Pt Status Changed To: Hospital Disposition Of: Extended Recovery/Post Procedure - . Bed Request Type: Telemetry
--- NOTE | 2017-05-03 14:09 | CARDCATH ---
PROCEDURE DATE: 05/03/2017 HISTORY: The patient is a 61-year-old male who presented to the hospital with angina. He underwent a stress test which revealed inferior wall ischemia. Because of this, cardiac catheterization was recommended. PROCEDURES: Left heart catheterization with coronary angiography, left ventriculogram, supra-aortic valvular injection as well as PTCA and stent of multiple lesions in the RCA. DESCRIPTION OF PROCEDURE: The right femoral artery was cannulated with a 6-Greenland[place] sheath. There were no complications. I performed moderate sedation which included the presence of an independent trained observer that assisted in monitoring the patient's level of consciousness and physiologic status. After administration of Versed and fentanyl, my intra-service time was 30 minutes. The findings on catheterization revealed a left ventricle that contracted normally. Estimated ejection fraction was 60%. His coronary anatomy revealed a right dominant circulation. The RCA revealed 80% stenosis, in-stent restenosis in the proximal portion, followed by 70% to 80% stenosis in the midportion as well as 70% to 80% stenosis in the posterolateral branch. The left main artery was unremarkable. The LAD and diagonal vessels revealed intimal irregularities without significant stenosis. The circumflex artery and obtuse marginal branches revealed intimal irregularities without significant stenosis. Supra-aortic valvular injection revealed no aortic insufficiency. The patient was started on intravenous Angiomax. On the fluoroscopic guide, the guiding catheter was placed in the ostium of the RCA. An 0.014 ATW wire was used to cross the critical lesion and place it to the posterolateral branch. A 2.5 balloon was utilized to pre-dilate the lesions. A 2.75 x 26 mm drug-eluting stent was placed across the in-stent restenosis as well as the mid RCA lesion. A 2.5 stent was placed in the posterolateral branch which were all drug-eluting stents. After stent deployment, the patient developed ST elevation associated with chest pain. A 2.5 balloon was then placed in the distal portion of the stent that was placed in the mid RCA. After balloon deflation and removal, this was followed by placement of a 2.75 x 12 mm drug-eluting stent in the distal portion of the stent. Repeat coronary angiography revealed an excellent result with resolution of the ST elevations and resolution of the chest pain. The patient tolerated the procedure well. In summary, the procedure was successful PTCA and stent of a diffusely diseased RCA with an in-stent restenosis as well as new lesions in the mid RCA and the posterolateral branch. There was crushing chest pain associated with ST elevations in the inferior lead c/w STEMI, which was corrected with PCI and stent in the distal portion of the initial stent. All stents that were placed were drug-eluting stents. Given these findings, the patient will need to remain on aspirin indefinitely and Plavix for at least a year. The procedure was stenting of a single-vessel RCA. Bradley Lake MD [email or web address]
--- NOTE | 2017-05-04 00:07 | HP ---
HISTORY OF PRESENT ILLNESS: The patient is admitted to 273, bed two after undergoing angioplasty. The patient recently was hospitalized for chest pain and had an outpatient stress test which was found to be abnormal and the patient has now today undergone a PTCA, angioplasty and stent placement x3 in the right coronary artery. CODE STATUS: Full code. LIVING WILL ADVANCE DIRECTIVE: None. ALLERGIES: NONE. HOME MEDICATIONS: 1. Tessalon Perles 100 to 200 mg three times a day. 2. Diovan 80 mg daily. 3. Lipitor 40 mg daily. 4. Aspirin 81 mg daily. 5. Protonix 40 mg daily. 6. Plavix 75 mg daily. SOCIAL HISTORY: Denies multi-substance abuse. Negative for alcohol. Negative for drug use. Denies communicable transmissible disease. Positive for former smoking. FAMILY HISTORY: Positive for hypertension. 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 PAST MEDICAL AND SURGICAL HISTORY: History of coronary artery disease, history of non-ST elevation myocardial infarction, history of angina, history of 90% mid segment right coronary artery stenosis and 30% ostial stenosis of the left circumflex, history of PCI and mid RCA stenosis angioplasty with drug-eluting stent, history of left ventricular hypertrophy, history of lymphocytosis resolved, history of dyslipidemia, history of hypokalemia, history of noncompliance, history of poor compliance, history of lost to follow up, history of hypertension, history of bronchitis, history of abnormal stress test, history of angina, history of abnormal stress test showing left ventricle ejection fraction of 50% with inferolateral hypokinesis, history of reversible inferior defect, history of hypertension, history of dyslipidemia. REVIEW OF SYSTEMS: 13 system review was positive for chest pain and angina. PHYSICAL EXAMINATION GENERAL: The patient is seen lying in bed 273, bed 2. VITAL SIGNS: Height is 5 feet 11 inches. BMI is 28. T-max 98.2. Telemetry shows sinus rhythm, heart rate 61, 76, 68, blood pressure 140/89, 145/101, 151/91, 143/88, 146/91, respiration 18, O2 sat is 97% to 98%. HEENT: The patient head examination is normocephalic, atraumatic. HEENT examination shows pink conjunctivae. Anicteric sclerae. No oropharyngeal lesion. NECK: No neck rigidity. No jugular venous distention. No audible carotid bruit. CHEST: Kyphosis. CARDIOPULMONARY: Shows S1, S2, regular rhythm. No audible murmur, gallop or rub. LUNGS: Examination shows no rales, crackles or wheezing. ABDOMEN: Soft. Positive bowel sounds. No hepatosplenomegaly. No costovertebral angle tenderness. No guarding. No rigidity. No rebound tenderness. GENITALIA: Male. RECTAL: Examination is deferred. EXTREMITIES: Shows positive right groin sheath being removed and groin pressure held. Pulses are palpable in lower extremity. No pitting edema, no calf numbness. No Homans sign. No clubbing, no cyanosis. VASCULAR: Palpable pulses. MUSCULOSKELETAL: Examination shows a body mass index of 28. NEUROLOGIC: Neurologically, the patient is alert, awake, responsive. His gait examination is not tested. IMPRESSION AND PLAN: 1. Multivessel coronary artery disease. 2. History of non-ST elevation myocardial infarction. 3. Status post angioplasty and stent placement x3 of the right coronary artery. 4. Sinus bradycardia with first-degree atrioventricular block and history of second-degree Wenckebach atrioventricular block. 5. Left-axis deviation. 6. Left ventricular hypertrophy. 7. Status post angioplasty and cardiac catheterization. 8. Hyperlipidemia. 9. Hypertension. 10. Lymphocytosis. 11. Hypercholesteremia. 12. Questionable central pulmonary venous congestion and left perihilar bronchial cuffing. 13. Thoracic spondylosis. 14. A 13-mm mediastinal lymphadenopathy. 15. Diverticulosis of the colon. 16. Prostatomegaly. 17. Degenerative joint disease of spine. 18. Second-degree Wenckebach atrioventricular block. Plan at this time, the patient has been ordered admission to [facility], bed 2, extended recovery post cardiac cath and angioplasty. The patient has been ordered repeat labs for the morning. The patient is started on hydralazine 10 mg IV q.6 p.r.n., Cozaar 50 mg daily, aspirin 81 mg daily, Lipitor 40 mg daily, Plavix 75 mg daily. The patient is on IV fluid 0.9 normal saline at 200 mL an hour till 3 p.m., Tessalon Perles 100 mg t.i.d. p.r.n. The patient's repeat EKG ordered. The patient is on bedrest post cardiac catheterization. The patient is on healthy diet. At present, the patient will be seen in consult by Dr. Bradley Lake. At present, the patient will be closely monitored on Telemetry. Dictated and electronically signed, not read. Marlon Rapp MD
[2017-05-04 00:57] VITALS: RESP 20
[2017-05-04] MEDS ORDERED: Pantoprazole 40 mg EC Tab PO SCH (06:00)
[2017-05-04 06:25] VITALS: BP 121/79; PULSE 70; TEMP 97.6; O2SAT 98
[2017-05-04 06:40] LABS: BASO # 0.03 K/mm3 (0.0-2.0); BASO % 0.5 % (0.0-3.0); EOS # 0.2 (0.0-0.7); EOS % 3.2 % (1.5-5.0); GRAN # 2.81 (1.4-6.5); HEMOGLOBIN 13.7 g/dL (14.0-18.0); LYMPH # 2.4 (1.2-3.4); MEAN CELL VOLUME 89.9 fl (80.0-105.0); MEAN CORPUSCULAR HEMOGLOBIN 30.2 pg (25.0-35.0); MEAN CORPUSCULAR HGB CONC 33.6 g/dl (31.0-37.0); MEAN PLATELET VOLUME 10.6 fl (7.0-11.0); MONO # 0.4 (0.1-0.6); MONO % 7.3 % (1.0-6.0); RBC 4.54 10^6/uL (3.5-6.1); RED CELL DISTRIBUTION WIDTH 13.1 % (11.5-14.5); WHITE BLOOD COUNT 5.9 10^3/ul (4.5-11.0)
[2017-05-04 07:56] LABS: BLOOD UREA NITROGEN 9 mg/dL (7-21); CALCIUM 8.8 mg/dL (8.4-10.5); GFR AFRICAN-AMERICAN > 60; GFR NON-AFRICAN AMERICAN > 60
--- NOTE | 2017-05-04 10:25 | PN ---
DATE: 05/04/2017 CARDIOLOGY FOLLOWUP SUBJECTIVE: The patient is ambulating without symptoms. PHYSICAL EXAMINATION: VITAL SIGNS: Blood pressure is 121/80, heart rate is in the 70s. NECK: Negative JVD. LUNGS: Without rales. HEART: S1, S2. EXTREMITIES: Without edema. Right groin site is stable. LABORATORY DATA: Hemoglobin is 13.7. Chemistries, BUN and creatinine are normal. IMPRESSION: 1. Stable post percutaneous transluminal coronary angioplasty and stent of the right coronary artery as well as the posterolateral branch with drug-eluting stents. 2. Hypercholesterolemia. 3. Hypertension. 4. Angina. PLAN: Given these findings, the patient is stable for discharge. I have discussed with the patient about the need for cardiac risk reduction program as well as well as the need for Plavix for at least a year. Followup instructions have been given to the patient in detail. Bradley Lake MD
--- NOTE | 2017-05-04 13:15 | CARD ---
APPROVED REPORT EKG Measurement Heart [id number] <Conclusion> Normal sinus rhythm [id number] degree AVB. Left axis deviation Minimal voltage criteria for LVH, may be normal variant
--- NOTE | 2017-05-05 08:59 | DS ---
HISTORY: The patient is seen in room 273, bed 2. The patient is seen lying in the bed and sitting up in the bed. The patient's post cardiac catheterization sheath was discontinued from the right groin. No hematoma or bleeding noted. Positive pulses noted. Overnight nurse's notes were reviewed. No adverse events documented. REVIEW OF SYSTEM: The patient's 13-system review was negative for chest pain, negative for headache, negative shortness of breath, negative for nausea, negative for cough, negative for diarrhea. Negative for hemoptysis, hematemesis, or melena. PHYSICAL EXAMINATION: VITAL SIGNS: T-max 97.5. Telemetry shows sinus rhythm, sinus bradycardia 58 to 70 beats per minute. Blood pressure ranging 126/77, 148/98. Respirations 20. O2 sat 98%. HEENT: Head examination: Normocephalic, atraumatic. HEENT examination shows pink conjunctivae. Anicteric sclerae. No oropharyngeal lesion. No neck rigidity. No carotid bruit. No jugular venous distention. CHEST: Shows kyphosis. LUNGS: Shows no rales, crackles, or wheezing. CARDIOVASCULAR: S1, S2. Regular rhythm. No appreciable murmur, gallop or rub. ABDOMEN: Soft. Positive bowel sound. No hepatosplenomegaly noted. No guarding. No rigidity. No rebound tenderness. No costovertebral angle tenderness. GENITALIA: Male. RECTAL: Deferred. EXTREMITIES: Show no pitting, no calf numbness, no Homans' sign. Positive pulses of bilateral lower extremity. Right groin examination shows no visible palpable hematoma. Positive pulses noted. NEUROLOGICAL: The patient is alert, awake, oriented x3. Cranial nerves II through XII intact. Gait examination is independent. VASCULAR: Palpable pulses. PSYCHIATRIC: Not applicable. DIAGNOSTICS: From 05/04, WBC 5.9, hemoglobin/hematocrit 13.7/40.8, platelet 259. Sodium 136, potassium 4.1, chloride 105, CO2 of 26, BUN 9, creatinine 0.9, glucose 103. EKG shows normal sinus rhythm, left axis deviation, left ventricular hypertrophy. FINAL IMPRESSION, PLAN, AND DISCHARGE DIAGNOSES: 1. Unstable angina. 2. Coronary artery disease. 3. Status post angioplasty. 4. Status post successful angioplasty and percutaneous angioplasty and drug-eluting stent placement x3 in the right coronary artery. 5. Hypertension. 6. History of second degree Wenckebach AV block (resolved). 7. Hypertension. 8. Hypercholesteremia. 9. History of noncompliance. 10. Mild normocytic anemia. 11. Left-axis deviation. 12. Hypertensive cardiovascular disease. Plan at this time, the patient is awaiting cardiology clearance for discharge. The patient will be considered for discharge home after cleared by Cardiology. The patient is advised low-salt, low-cholesterol diet. The patient is advised discharge follow up with Dr. Rapp and Dr. Lake. DISCHARGE MEDICATIONS: The patient's discharge medications are as per updated ambulatory orders including aspirin 81 mg daily, Plavix 75 mg daily, Protonix 40 mg daily, Lipitor 40 mg daily, Diovan 40 or 80 mg daily, Tessalon Perles 100 to 200 mg three times a day p.r.n. for cough. During this hospitalization, the patient was extensively explained about his diagnosis, need for further diagnostic therapeutic intervention, need for close outpatient followup, need for diet and medication compliance, all was stressed to the patient during this hospitalization, and at the time of the discharge. Time spent in the entire discharge process more than 35 minutes. Dictated and electronically signed, not read. Marlon Rapp MD
== END 2017-05-04 12:50 | disposition home or self-care (01) ==
LOC: CATH 06:27 → 2RSO 09:33 → CATH 05-04 12:50
PROVIDERS: ATTEND Internal Medicine
DX: I25.110 Atherosclerotic heart disease of native coronary artery with unstable angina pectoris (principal); E78.00 Pure hypercholesterolemia, unspecified; I10 Essential (primary) hypertension; I25.2 Old myocardial infarction; I44.1 Atrioventricular block, second degree; K57.30 Diverticulosis of large intestine without perforation or abscess without bleeding; N40.0 Benign prostatic hyperplasia without lower urinary tract symptoms; Z79.02 Long term (current) use of antithrombotics/antiplatelets; Z79.82 Long term (current) use of aspirin; Z79.899 Other long term (current) drug therapy; Z87.891 Personal history of nicotine dependence; Z95.5 Presence of coronary angioplasty implant and graft; Z98.890 Other specified postprocedural states; R94.39 Abnormal result of other cardiovascular function study; E78.5 Hyperlipidemia, unspecified; Z91.19 Patient's noncompliance with other medical treatment and regimen; I51.7 Cardiomegaly; M47.9 Spondylosis, unspecified; R59.0 Localized enlarged lymph nodes; M19.90 Unspecified osteoarthritis, unspecified site; D64.9 Anemia, unspecified; I11.9 Hypertensive heart disease without heart failure
CPT/HCPCS: 36415; 80048 ×2; 85025 ×2; 85610; 85730; 86850; 86900; 93005 ×2; 93458; 99152; 99153; C1725 ×2; C1769 ×2; C1874 ×2; C1887; C2629; C9600; J0583; J1644; J2250; J2270; J2405; J3010; J7030; J7040; Q9967 ×2